=== PATIENT | female | born 1975 | race Caucasian/White ===

== ENCOUNTER 2021-09-29 16:21 | Outpatient (CLI) | payer BC | END 2021-09-29 16:22 | disposition home or self-care (01) | LOC: CTENTCT 16:21 | PROVIDERS: ATTEND Student in an Organized Health Care Education/Training Program | DX: J32.9 Chronic sinusitis, unspecified (principal); J33.9 Nasal polyp, unspecified | CPT/HCPCS: 70486 ==

== ENCOUNTER 2021-12-02 16:38 | Outpatient (CLI) | payer BC ==
[2021-12-02 18:44] LABS: BHCG - Serum Negative (NEGATIVE); Pregs Control Background? CLEAR/WHITE (CLR/WHITE); Pregs Control Bar Appear? YES (CONTROL BAR)
[2021-12-03 15:24] LABS: SARS-CoV-2 PCR by NAA Not Detected (NotDetected)
== END 2021-12-02 16:39 | disposition home or self-care (01) ==
LOC: LABBT 16:38
PROVIDERS: ATTEND Student in an Organized Health Care Education/Training Program
DX: Z01.812 Encounter for preprocedural laboratory examination (principal); J32.9 Chronic sinusitis, unspecified; J34.2 Deviated nasal septum; R51.9 Headache, unspecified; J00 Acute nasopharyngitis [common cold]; J34.3 Hypertrophy of nasal turbinates; J32.0 Chronic maxillary sinusitis; J32.1 Chronic frontal sinusitis; J32.2 Chronic ethmoidal sinusitis; J32.3 Chronic sphenoidal sinusitis; J33.0 Polyp of nasal cavity; R44.8 Other symptoms and signs involving general sensations and perceptions; Z20.822 Contact with and (suspected) exposure to COVID-19
CPT/HCPCS: 84703; 85014; U0003; U0005

== ENCOUNTER 2021-12-06 07:16 | Day surgery (SDC) | payer BC ==
[2021-12-01 09:21] VITALS: BMI 26.6
[2021-12-06] MEDS ORDERED: Xylocaine 1% w/ Epi 1:100K 10 ML VIAL ONE (07:53)
[2021-12-06] MEDS ORDERED: Bacitracin Zinc Ointment 30 gm TUBE ONE (07:53)
[2021-12-06] MEDS ORDERED: EPINEPHrine 1 MG/ML AMP ONE (07:53)
[2021-12-06] MEDS ORDERED: AFRIN NASAL MIST 15 ML BOT ONE ×2 (07:53→08:09)
[2021-12-06] MEDS ORDERED: Fentanyl 250 MCG/5 ML VIAL ONE (08:01)
[2021-12-06] MEDS ORDERED: Dexmedetomidine 200 MCG/2 ML VIAL ONE (08:03)
[2021-12-06] MEDS ORDERED: Acetaminophen 500 MG TAB ONE (08:09)
[2021-12-06] MEDS ORDERED: Scopolamine 1.5 mg/72 hour Patch ONE (08:09)
[2021-12-06] MEDS ORDERED: PROPOFOL 200 MG/20 ML VIAL ONE (09:25)
[2021-12-06] MEDS ORDERED: Ondansetron PF 4 MG/2 ML Vial ONE (09:25)
[2021-12-06] MEDS ORDERED: PHENYLEPHRINE-NS 100 MCG/ML 10 ML SYRINGE ONE (09:25)
[2021-12-06] MEDS ORDERED: Rocuronium Bromide 10 MG/ML (10ML VIAL) ONE (09:25)
[2021-12-06] MEDS ORDERED: Lidocaine 1% PF 5 ML VIAL ONE (09:25)
[2021-12-06] MEDS ORDERED: Dexamethasone 20 MG/5 ML VIAL ONE (09:25)
[2021-12-06] MEDS ORDERED: Ketorolac Tromethamine 30 MG/ML VIAL ONE (09:25)
[2021-12-06] MEDS ORDERED: Triamcinolone 40 MG/ML VIAL ONE (11:08)
== END 2021-12-06 13:40 | disposition home or self-care (01) ==
LOC: SDC 07:16
PROVIDERS: ATTEND Student in an Organized Health Care Education/Training Program
PROC: 8E09XBZ Computer Assisted Procedure of Head and Neck Region (ICD-10-PCS; principal; 2021-12-06)
PROC: 09BW8ZZ Excision of Right Sphenoid Sinus, Via Natural or Artificial Opening Endoscopic (ICD-10-PCS; principal; 2021-12-06)
PROC: 09BX8ZZ Excision of Left Sphenoid Sinus, Via Natural or Artificial Opening Endoscopic (ICD-10-PCS; principal; 2021-12-06)
PROC: 09BT8ZZ Excision of Left Frontal Sinus, Via Natural or Artificial Opening Endoscopic (ICD-10-PCS; principal; 2021-12-06)
PROC: 09BR8ZZ Excision of Left Maxillary Sinus, Via Natural or Artificial Opening Endoscopic (ICD-10-PCS; principal; 2021-12-06)
PROC: 09TV8ZZ Resection of Left Ethmoid Sinus, Via Natural or Artificial Opening Endoscopic (ICD-10-PCS; principal; 2021-12-06)
PROC: 09BS8ZZ Excision of Right Frontal Sinus, Via Natural or Artificial Opening Endoscopic (ICD-10-PCS; principal; 2021-12-06)
PROC: 09TU8ZZ Resection of Right Ethmoid Sinus, Via Natural or Artificial Opening Endoscopic (ICD-10-PCS; principal; 2021-12-06)
PROC: 09BQ8ZZ Excision of Right Maxillary Sinus, Via Natural or Artificial Opening Endoscopic (ICD-10-PCS; principal; 2021-12-06)
DX: J32.4 Chronic pansinusitis (principal); J34.3 Hypertrophy of nasal turbinates; J34.2 Deviated nasal septum; J33.8 Other polyp of sinus; Z79.899 Other long term (current) drug therapy
CPT/HCPCS: J0171; J1100; J1885; J2405; J2704; J3010; J3301

== ENCOUNTER 2023-09-25 16:55 | Observation (INO) | payer BC ==
[2023-09-25 17:49] LABS: #Basophils 0.1 thou/uL (0.0-0.2); #Eosinphils 0.3 thou/uL (0.0-0.7); #Monocytes 0.8 thou/uL (0.11-0.59); #Neutrophils 6.6 thou/uL (1.40-6.50); %Basophils 0.5 % (0.0-1.0); %Eosinophils 3.6 % (0.0-10.0); %Lymphocytes 17.8 % (21.0-51.0); %Monocytes 8.7 % (0.0-10.0); %Neutrophils 69.2 % (42.0-75.0); Hematocrit 42.5 % (36.0-47.0); Hemoglobin 14.2 g/dL (12.0-16.0); Mean Corpuscular HGB CONC 33.4 g/dL (32.0-36.0); Mean Corpuscular Hemoglobin 30.1 pg (27.0-31.0); Mean Corpuscular Volume 90.2 fl (78.0-98.0); Mean Platelet Volume 10.3 fL (7.4-10.4); Platelet Count 314 10x3/uL (130-400); RBC Distribution Width 12.1 % (11.5-14.5); Red Blood Cell (RBC) Count 4.71 mill/uL (4.20-5.40); White Blood Cell (WBC) Count 9.6 10x3/uL (4.8-10.8)
[2023-09-25 18:06] LABS: BHCG - Serum Negative (NEGATIVE); Pregs Control Background? CLEAR/WHITE (CLR/WHITE); Pregs Control Bar Appear? YES (CONTROL BAR)
[2023-09-25 18:21] LABS: ALT (SGPT) 10 U/L (8-55); AST (SGOT) 18 U/L (5-34); Alkaline Phosphatase 74 U/L (40-110); Anion Gap 12 mmol/L (10-20); BUN (Urea Nitrogen) 12 mg/dL (7.0-18.7); Bilirubin, Total 0.5 mg/dL (0.2-1.2); Calc. Creatinine Clearance 0 mL/min (70-130); Calcium 9.1 mg/dL (7.8-10.44); Carbon Dioxide 27 mmol/L (22-29); Chloride 103 mmol/L (98-107); Estimated GFR 83; Globulin 2.9 g/dL (2.4-3.5); Glucose 100 mg/dL (70-105); Lipase 26 U/L (8-78); Potassium 3.2 mmol/L (3.5-5.1); Protein, Total 6.9 g/dL (6.0-8.3); Sodium 139 mmol/L (136-145)
[2023-09-25 18:32] LABS: Bacteria/HPF 2+ HPF (None Seen); Bilirubin Negative (Negative); Blood, Urine 1+ (Negative); CAUTI Indications for Culture Pelvic or flank pain; Clarity Turbid (Clear); Glucose, Urine (Dipstick) Normal (Negative); Ketone, Urine Negative (Negative); Leukocyte 500 Leu/uL (Negative); Mucous/LPF Rare LPF (<2+); Nitrite Negative (Negative); Protein, Urine (Dipstick) 10 mg/dL (Neg-Trace); Renal Epithelial 0-3 HPF (None Seen); Specific Gravity, Urine 1.019 (1.002-1.036); Squamous Epithelial 21-50 HPF (0-3); Urobilinogen Normal mg/dL (Less than 2); WBC/HPF 21-50 HPF (0-3)
[2023-09-25] MEDS ORDERED: cefTRIAXone (ROCEPHIN) 2 GM VIAL ONE (19:02)
[2023-09-25] MEDS ORDERED: Sodium Chloride 0.9% 100 ML ONE (19:03)
[2023-09-25] MEDS ORDERED: Morphine 4 MG/ML VIAL ONE (19:14)
[2023-09-25] MEDS ORDERED: Ketorolac Tromethamine 30 MG/ML VIAL ONE (19:14)
[2023-09-25] MEDS ORDERED: Morphine 4 MG/ML VIAL SLOW IVP PRN (19:48)
[2023-09-25] MEDS ORDERED: Morphine 2 MG/ML VIAL SLOW IVP PRN (19:48)
[2023-09-25] MEDS ORDERED: Ondansetron PF 4 MG/2 ML Vial IVP PRN (19:48)
[2023-09-25] MEDS ORDERED: Potassium Chloride 20 MEQ/100 ML PREMIX BAG ONE (20:04)
[2023-09-25] MEDS ORDERED: Diphenoxylate HCl/Atropine Tablet PO SCH (21:00)
[2023-09-25] MEDS ORDERED: Nortriptyline HCl 25 MG CAP PO SCH (21:00)
[2023-09-25] MEDS: Sodium Chloride 0.9% 1,000 ML IV SCH (21:56)
[2023-09-25 22:27] VITALS: BMI 24.5
[2023-09-26] MEDS: Sodium Chloride 0.9% 1,000 ML IV SCH (05:37)
[2023-09-26 07:15] LABS: #Eosinphils 0.6 thou/uL (0.0-0.7); #Monocytes 0.7 thou/uL (0.11-0.59); #Neutrophils 4.3 thou/uL (1.40-6.50); %Basophils 0.5 % (0.0-1.0); %Eosinophils 8.4 % (0.0-10.0); %Lymphocytes 23.1 % (21.0-51.0); %Monocytes 9.9 % (0.0-10.0); Hematocrit 38.2 % (36.0-47.0); Hemoglobin 12.9 g/dL (12.0-16.0); Mean Corpuscular HGB CONC 33.8 g/dL (32.0-36.0); Mean Corpuscular Hemoglobin 30.9 pg (27.0-31.0); Mean Corpuscular Volume 91.4 fl (78.0-98.0); Mean Platelet Volume 9.8 fL (7.4-10.4); Platelet Count 259 10x3/uL (130-400); RBC Distribution Width 12.2 % (11.5-14.5); Red Blood Cell (RBC) Count 4.18 mill/uL (4.20-5.40); White Blood Cell (WBC) Count 7.4 10x3/uL (4.8-10.8)
[2023-09-26 07:36] LABS: Bacteria/HPF None Seen HPF (None Seen); Bilirubin Negative (Negative); Blood, Urine 3+ (Negative); Clarity Clear (Clear); Glucose, Urine (Dipstick) Normal (Negative); Ketone, Urine 10 mg/dL (Negative); Leukocyte Negative Leu/uL (Negative); Nitrite Negative (Negative); Protein, Urine (Dipstick) Negative (Neg-Trace); RBC/HPF 21-50 HPF (0-3); Specific Gravity, Urine 1.012 (1.002-1.036); Squamous Epithelial None Seen HPF (0-3); Urobilinogen Normal mg/dL (Less than 2)
[2023-09-26 07:37] LABS: Anion Gap 10 mmol/L (10-20); BUN (Urea Nitrogen) 7 mg/dL (7.0-18.7); Calc. Creatinine Clearance 109 mL/min (70-130); Carbon Dioxide 25 mmol/L (22-29); Chloride 107 mmol/L (98-107); Estimated GFR 103; Glucose 86 mg/dL (70-105); Potassium 3.3 mmol/L (3.5-5.1); Sodium 139 mmol/L (136-145)
[2023-09-26] MEDS ORDERED: Iopamidol 30 ML ONE (08:04)
[2023-09-26] MEDS ORDERED: LevoFLOXacin 500 mg/D5W 100 ML BAG ONE (08:04)
[2023-09-26] MEDS ORDERED: Succinylcholine 200 MG/10 ml SYRINGE FS ONE (08:38)
[2023-09-26] MEDS ORDERED: PROPOFOL 200 MG/20 ML VIAL ONE (08:38)
[2023-09-26] MEDS ORDERED: Ondansetron PF 4 MG/2 ML Vial ONE (08:38)
[2023-09-26] MEDS ORDERED: Lidocaine 1% PF 5 ML VIAL ONE (08:38)
[2023-09-26] MEDS ORDERED: Rocuronium Bromide 10 MG/ML (10ML VIAL) ONE (08:38)
[2023-09-26] MEDS ORDERED: Dexamethasone 20 MG/5 ML VIAL ONE (08:38)
[2023-09-26] MEDS ORDERED: Ketorolac Tromethamine 30 MG/ML VIAL ONE (08:38)
[2023-09-26] MEDS ORDERED: diphenhydrAMINE 50 MG/ML VIAL IVP PRN (09:24)
[2023-09-26] MEDS ORDERED: HYDROcodone/Acetaminophen 5/325 mg Tablet PO PRN ×2 (09:24)
[2023-09-26] MEDS ORDERED: Ketorolac Tromethamine 30 MG/ML VIAL IVP PRN (09:24)
[2023-09-26] MEDS ORDERED: Oxybutynin 5 MG TAB PO PRN (09:24)
[2023-09-26] MEDS ORDERED: Metoclopramide HCl 10 MG/2 ML VIAL IVP PRN (10:14)
[2023-09-26] MEDS ORDERED: Aspirin/APAP/Caffeine Tab (Excedrin Migraine) PO PRN (10:43)
[2023-09-26] MEDS ORDERED: Phenazopyridine HCl 100 MG TAB PO SCH (15:00)
[2023-09-26 18:18] VITALS: BP 158/94; TEMP 98.5
[2023-09-26] MEDS ORDERED: cefTRIAXone\\ROCEPHIN 2 GM in Sodium Chloride 0.9% 100 ML IVPB SCH (20:00)
== END 2023-09-26 18:50 | disposition home or self-care (01) ==
LOC: SUATTDRO 16:55 → ERS 16:55 → T4-B 19:51 → INTOOBSV 19:51
PROVIDERS: ADMIT Family Medicine; ATTEND Hospitalist
PROC: 0TC18ZZ Extirpation of Matter from Left Kidney, Via Natural or Artificial Opening Endoscopic (ICD-10-PCS; principal; 2023-09-26)
PROC: 0TC78ZZ Extirpation of Matter from Left Ureter, Via Natural or Artificial Opening Endoscopic (ICD-10-PCS; 2023-09-26)
PROC: 0T778DZ Dilation of Left Ureter with Intraluminal Device, Via Natural or Artificial Opening Endoscopic (ICD-10-PCS; 2023-09-26)
DX: N13.2 Hydronephrosis with renal and ureteral calculous obstruction (principal); E05.90 Thyrotoxicosis, unspecified without thyrotoxic crisis or storm; N39.0 Urinary tract infection, site not specified; K58.9 Irritable bowel syndrome, unspecified; Z90.49 Acquired absence of other specified parts of digestive tract
CPT/HCPCS: 36415; 51701; 74420; 80048; 80053; 81001; 82365; 83605; 83690; 84703; 85025; 87086; 88300; 96361; 96365; 96375; C1747; C1769; C2617; J0696; J1100; J1885; J1956; J2270; J2405; J2704; J2765; J3480; J3490; J7050; Q9967

== ENCOUNTER 2024-04-02 14:38 | Outpatient (CLI) | payer BC | END 2024-04-02 14:39 | disposition home or self-care (01) | LOC: BICCT 14:38 | PROVIDERS: ATTEND Urology | DX: N20.0 Calculus of kidney (principal); R10.9 Unspecified abdominal pain; N28.89 Other specified disorders of kidney and ureter | CPT/HCPCS: 74176 ==

== ENCOUNTER 2024-04-04 08:02 | Outpatient (CLI) | payer BC ==
[2024-04-04 09:22] LABS: Hematocrit 44.7 % (34.9-44.5); Hemoglobin 15.3 g/dL (12.0-15.5); Mean Corpuscular HGB CONC 34.2 g/dL (32.0-36.0); Mean Corpuscular Hemoglobin 30.4 pg (27.0-33.0); Mean Corpuscular Volume 88.9 fL (81.6-98.3); Mean Platelet Volume 10.5 fL (7.4-10.4); Platelet Count 328 10x3/uL (150-450); RBC Distribution Width 11.9 % (11.5-14.5); Red Blood Cell (RBC) Count 5.03 10x6/uL (3.90-5.03); White Blood Cell (WBC) Count 6.9 10x3/uL (3.5-10.5)
[2024-04-04 09:31] LABS: PTT 26.5 sec (22.0-33.0); Prothrombin Time 10.6 sec (9.5-12.1)
[2024-04-04 09:52] LABS: BHCG - Serum Negative (NEGATIVE); Pregs Control Background? CLEAR/WHITE (CLR/WHITE); Pregs Control Bar Appear? YES (CONTROL BAR)
[2024-04-04 10:00] LABS: Anion Gap 13 mmol/L (10-20); BUN (Urea Nitrogen) 9 mg/dL (7.0-18.7); Calc. Creatinine Clearance 0 mL/min (70-130); Calcium 9.2 mg/dL (7.8-10.44); Carbon Dioxide 29 mmol/L (22-29); Chloride 103 mmol/L (98-107); Estimated GFR 101; Glucose 90 mg/dL (70-105); Potassium 3.6 mmol/L (3.5-5.1); Sodium 141 mmol/L (136-145)
[2024-04-04 11:28] LABS: Bilirubin Neg (Negative); Blood, Urine 10 (Negative); Clarity Slightly Cloudy (Clear); Glucose, Urine (Dipstick) Normal (Negative); Ketone, Urine Negative (Negative); Leukocyte 25 (Negative); Nitrite Negative (Negative); Protein, Urine (Dipstick) Negative (Neg-Trace); Urobilinogen Normal mg/dL (Less than 2)
[2024-04-04 11:41] LABS: Bacteria/HPF 2+ HPF (None Seen); RBC/HPF 0-3 HPF (0-3)
== END 2024-04-04 08:03 | disposition home or self-care (01) ==
LOC: LABBT 08:02
PROVIDERS: ATTEND Urology
DX: Z01.818 Encounter for other preprocedural examination (principal); N20.2 Calculus of kidney with calculus of ureter; R35.0 Frequency of micturition
CPT/HCPCS: 80048; 81001; 84703; 85027; 85610; 85730; 87086; 93005; 93010

== ENCOUNTER 2024-04-16 07:01 | Day surgery (SDC) | payer BC ==
[2024-04-04 08:32] VITALS: BMI 25.0
[2024-04-16] MEDS ORDERED: LevoFLOXacin D5W 500 mg (100 mL) BAG ONE (08:34)
[2024-04-16] MEDS ORDERED: Scopolamine 1 mg/72 hour Patch ONE (09:07)
[2024-04-16] MEDS ORDERED: Midazolam HCl 2 mg/2 ml Vial ONE ×2 (09:07→09:45)
[2024-04-16] MEDS ORDERED: Rocuronium Bromide 10 MG/ML (10ML VIAL) ONE (09:45)
[2024-04-16] MEDS ORDERED: Ondansetron PF 4 MG/2 ML Vial ONE (09:45)
[2024-04-16] MEDS ORDERED: PROPOFOL 20 ML ONE (09:45)
[2024-04-16] MEDS ORDERED: fentaNYL PF 100 MCG/2 ML SYRINGE ONE (09:45)
[2024-04-16] MEDS ORDERED: Lidocaine 2% PF 5 ML VIAL ONE (09:45)
[2024-04-16] MEDS ORDERED: Dexamethasone 4 mg/ml Vial ONE (09:45)
[2024-04-16] MEDS ORDERED: SUGAMMADEX SODIUM 200 MG/2 ML VIAL ONE (10:13)
[2024-04-16] MEDS ORDERED: Ketorolac Tromethamine 30 MG (1 mL) VIAL ONE (10:41)
[2024-04-16] MEDS ORDERED: Promethazine HCl 25 MG/ML VIAL ONE (11:01)
[2024-04-16] MEDS ORDERED: Labetalol HCl 100 MG/20 ML VIAL ONE (11:01)
[2024-04-16] MEDS ORDERED: fentaNYL 50 mcg/mL 1 mL Vial ONE ×2 (11:33→12:54)
[2024-04-16] MEDS ORDERED: hydrALAZINE 20 MG/ML VIAL ONE (11:33)
[2024-04-16] MEDS ORDERED: Oxybutynin 5 MG TAB ONE (11:50)
[2024-04-16] MEDS ORDERED: Phenazopyridine HCl 100 MG TAB ONE (11:50)
[2024-04-16] MEDS ORDERED: HYDROcodone/Acetaminophen 5/325 mg Tablet ONE (15:39)
== END 2024-04-16 17:15 | disposition home or self-care (01) ==
LOC: SDC 07:01
PROVIDERS: ATTEND Urology
PROC: 0TC18ZZ Extirpation of Matter from Left Kidney, Via Natural or Artificial Opening Endoscopic (ICD-10-PCS; principal; 2024-04-16)
PROC: 0T778DZ Dilation of Left Ureter with Intraluminal Device, Via Natural or Artificial Opening Endoscopic (ICD-10-PCS; principal; 2024-04-16)
DX: N20.0 Calculus of kidney (principal); E05.90 Thyrotoxicosis, unspecified without thyrotoxic crisis or storm; J30.2 Other seasonal allergic rhinitis; K58.9 Irritable bowel syndrome, unspecified; J30.9 Allergic rhinitis, unspecified; Z79.899 Other long term (current) drug therapy; Z79.890 Hormone replacement therapy; Z98.890 Other specified postprocedural states; Z88.1 Allergy status to other antibiotic agents
CPT/HCPCS: 74018; 74420; 82365; 88300; C1747; C1769; C2617; J0360; J1100; J1885; J1956; J2001; J2250; J2405; J2550; J2704; J3010